=== PATIENT | male | born 1955 | race Caucasian/White ===

== ENCOUNTER 2018-08-29 18:10 | Emergency (ER) | payer SELFPAY ==
[2018-08-29 18:19] VITALS: BP 150/84; PULSE 84; RESP 16; TEMP 98.7; O2SAT 97
[2018-08-29] MEDS ORDERED: Oxycodone/Acetaminophen 5/325 mg Tab PO STA (19:07)
[2018-08-29] MEDS ORDERED: Oxycodone/Acetaminophen 5/325 mg Tab ONE (19:17)
--- NOTE | 2018-08-29 19:42 | ED PDOC ---
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 Patient states that 2x days ago he was eating chips when his left upper tooth broke. PAtient reports taking unknown [id number] medications with no relief (last dose was earlier this morning with breakfast). Patient states that the pain has progressively worsened, prompting ED visit today. Patient denies having fevers, chills, blunt trauma, or head injuries. PMD: Cheryl MILLER Past Medical History Reviewed: Historical Data, Nursing Documentation, Vital Signs Vital Signs: Last Vital Signs Temp 98.7 F 08/29/18 18:16 Pulse 84 08/29/18 18:16 Resp 16 08/29/18 18:16 BP 150/84 08/29/18 18:16 Pulse Ox 97 08/29/18 18:16 PIEDAD Report Viewed: Yes - Medical History PMH: HTN - Surgical History Surgical History: No Surg Hx - Family History Family History: States: No Known Family Hx - Social History Current smoker - smoking cessation education provided: No Alcohol: None Drugs: Denies - Immunization History Hx Tetanus Toxoid Vaccination: No Hx Influenza Vaccination: No Hx Pneumococcal Vaccination: No - Allergies Allergies/Adverse Reactions: Allergies Allergy/AdvReac Type Severity Reaction Status Date / Time No Known Allergies Allergy Verified 08/29/18 18:19 Review of Systems ROS Statement: Except As Marked, All Systems Reviewed And Found Negative Constitutional: Negative for: Fever, Chills ENT: Positive for: Other (left upper tooth pain) Physical Exam - Reviewed Nursing Documentation Reviewed: Yes Vital Signs Reviewed: Yes - Physical Exam Appears: Positive for: Well, Non-toxic, No Acute Distress Head Exam: Positive for: ATRAUMATIC, NORMOCEPHALIC Skin: Positive for: Normal Color, Warm, Dry ENT: Positive for: Other (poor denticion, (-) gingival swelling. Left maxillary lateral incisor broken. (-) dentin exposure noted.) Neurological/Psych: Positive for: Awake, Alert, Oriented (3x) - ECG O2 Sat by Pulse Oximetry: 97 (RA) Pulse Ox Interpretation: Normal Medical Decision Making Medical Decision Makin:44 Initial impression: 63 year old male with dental pain. Initial plan: * amoxil 500 mg cap 500 mg po * percocet 5/325 mg tab 1 tab po * toradol 30 mg im once * reevaluation Advised patient to follow up with dentist. Informed patient that he will be prescribed narcotics which can cause dependence. Patient not to drive, handle heavy machinery, or drink alcohol while taking this medication. 19:20 Patient left ED before treatment. Scribe Attestation: Documented by Raquel Mckeon, acting as a scribe for Eric Cardona Provider Scribe Attestation: All medical record entries made by the Scribe were at my direction and personally dictated by me. I have reviewed the chart and agree that the record accurately reflects my personal performance of the history, physical exam, medical decision making, and the department course for this patient. I have also personally directed, reviewed, and agree with the discharge instructions and disposition. Disposition - Clinical Impression Clinical Impression: Dental injury - Patient ED Disposition Is Patient to be Admitted: No - Disposition Disposition: Left W/O Treatment Disposition Time: 19:20 Condition: UNKNOWN Forms: [employer] (Croatian)
== END 2018-08-29 19:25 | disposition left against medical advice (07) ==
LOC: H.ER 18:10
DX: K08.89 Other specified disorders of teeth and supporting structures (principal); I10 Essential (primary) hypertension